=== PATIENT | female | born 1965 | race Hispanic/Latino ===

== ENCOUNTER 2019-08-28 10:42 | Emergency (ER) | payer BC, OTHER ==
[2019-08-28] MEDS ORDERED: DEXAMETHASONE SOD PHOSPHATE 10MG/ML 1ML VIAL ONE (10:53)
[2019-08-28] MEDS ORDERED: DiphenhydrAMINE HCL 50 MG/ML VIAL ONE (10:54)
== END 2019-08-28 11:56 | disposition home or self-care (01) ==
LOC: EDH 10:42
DX: T78.40XA Allergy, unspecified, initial encounter (principal); X58.XXXA Exposure to other specified factors, initial encounter
CPT/HCPCS: 96372 ×2; 99284; J1100; J1200

== ENCOUNTER 2024-08-23 09:31 | Day surgery (SDC) | payer BC ==
--- NOTE | 2024-08-22 13:01 | EKG ---
[facility] Test Date: 2024-08-22 Test Time: 12:49:24 Pat Name: AR SUMNER Department: [facility] Room: [facility] Gender: F Equity Analyst: [id number] : 1965 Requested By: WAQAS MCKINNEY Order Number: [id number] Reading MD: Yessenia Raymundo Measurements Intervals [place] Rate: 63 P: 39 [place]: 150 QRS: 62 QRSD: 82 T: 64 QT: 379 QTc: 387 Interpretive Statements Sinus rhythm No previous ECG available for comparison Electronically Signed On 08-24-2024 14:37:07 CDT by Yessenia Raymundo Please click the below link to view image of tracing.
[2024-08-22 13:14] VITALS: BP 138/61; PULSE 69; RESP 18; TEMP 97.3
[2024-08-22 13:17] LABS: BASOPHILS # (AUTO) 0.05 K/uL (0.00-0.20); BASOPHILS % (AUTO) 0.7 % (0.0-5.0); EOSINOPHILS # (AUTO) 0.16 K/uL (0.00-0.70); EOSINOPHILS % (AUTO) 2.4 % (0.0-8.0); HEMATOCRIT 41.4 % (36-48); IMMATURE GRANULOCYTE ABSOLUTE 0.01 K/uL (0-1); LYMPHOCYTES # (AUTO) 1.9 K/uL (1.0-4.8); LYMPHOCYTES % (AUTO) 28.1 % (21.0-51.0); MEAN CORPUSCULAR HEMOGLOBIN 29.2 pg (27.0-33.0); MEAN CORPUSCULAR HGB CONC 33.3 g/dL (32.0-36.0); MEAN CORPUSCULAR VOLUME 87.5 fL (79-99); MONOCYTES # (AUTO) 0.5 K/uL (0.1-1.0); MONOCYTES % (AUTO) 6.7 % (3.0-13.0); NEUTROPHILS # (AUTO) 4.1 K/uL (1.8-7.7); PLATELET COUNT (AUTO) 301 K/uL (130-400); RED BLOOD CELL COUNT(AUTO) 4.73 MIL/uL (4.00-5.50); RED CELL DISTRIBUTION WIDTH 12.5 % (11.0-15.5); WHITE BLOOD COUNT (AUTO) 6.7 K/uL (4.8-10.8)
[2024-08-22 13:24] LABS: CREATININE 0.7 mg/dL (0.5-1.0); POTASSIUM 3.9 mmol/L (3.5-5.1)
[2024-08-22 13:29] LABS: INR <= 0.93 (0.85-1.15); PROTHROMBIN TIME 9.9 SEC (9.6-11.6)
[2024-08-22 13:30] LABS: PARTIAL THROMBOPLASTIN TIME 27.5 SEC (26.3-35.5)
[~2024-08-23] VITALS: Ht 149.9 cm; Wt 61.1 kg
[2024-08-23] VITALS (15 sets, daily range): BP systolic 121–143; BP diastolic 57–81; PULSE 60–81; RESP 13–18; TEMP 97–97.9
[2024-08-23] MEDS: BUPIvacaine/PF 0.25% 30ML VIAL IJ ONE
[~2024-08-23 09:31] MED LIST: OMEP40CA21 PO; SUCR1TAB2 PO
[2024-08-23] MEDS: ceFAZolin SODIUM 2 GM VIAL ONE (10:22)
[2024-08-23] MEDS: LACTATED RINGERS 1000ML 1,000 ML IV ONE (10:22)
[2024-08-23] MEDS ORDERED: acetaMINOPHEN 100 ML ONE (10:32)
[2024-08-23] MEDS ORDERED: FAMOTIDINE 20MG VIAL IV ONE (10:32)
[2024-08-23] MEDS ORDERED: LIDOCAINE PF 100MG/5ML (2%) SYRINGE 5ML ONE ×2 (10:44→12:13)
[2024-08-23] MEDS ORDERED: dexaMETHasone SOD PHOSPHATE 10MG/ML 1ML VIAL ONE (12:13)
[2024-08-23] MEDS ORDERED: SUCCINYLCHOLINE CHLORIDE 20 MG/ML 10 ML VIAL ONE (12:13)
[2024-08-23] MEDS ORDERED: rocuRONium bROMide 10MG/1ML 5ML VL ONE (12:13)
[2024-08-23] MEDS ORDERED: ondanSETRON 4MG INJ ONE (12:13)
[2024-08-23] MEDS ORDERED: NEOSTIGMINE METHYLSULFATE 1MG/ML IV ONE (12:13)
[2024-08-23] MEDS ORDERED: proPOFol 10 MG/ML 20ML VIAL IV ONE (12:13)
[2024-08-23] MEDS ORDERED: GLYCOPYRROLATE 0.2 MG/ML 5 ML VIAL ONE (12:13)
[2024-08-23] MEDS ORDERED: MIDAZOLAM HCL 1 MG/ML 2ML VIAL ONE (12:14)
[2024-08-23] MEDS ORDERED: FENTanyl CITRate PF 50 MCG/1 ML 2ML VIAL ONE ×2 (12:14→12:55)
[2024-08-23] MEDS ORDERED: phenylEPHRINE HCL 10 MG/ML 1ML VIAL IV ONE (13:01)
--- NOTE | 2024-08-23 13:51 | PN ---
GENERAL SURGERY PROGRESS NOTE Date/Time Patient Seen: [ 08/23/2024 at 1300] Problem List: [ ] Interval History: [Postop day 0. Pain tolerable with p.r.n. medication. ] Physical Examination: ABD: [Incisions clean, dry and intact, Dermabond in place Vital Signs (last 8hr) Date Time Temp Pulse Resp B/P (MAP) Pulse Ox O2 Delivery O2 Flow Rate FiO2 08/23/24 09:50 97.0 70 16 143/81 98 Room Air Laboratory: [ ] Hematology Labs: Test 08/22/24 12:35 Range/Units White Blood Count 6.7 4.8-10.8 K/uL Red Blood Count 4.73 4.00-5.50 MIL/uL Hemoglobin 13.8 12.0-16.0 g/dL Hematocrit 41.4 36-48 % Mean Corpuscular Volume 87.5 79-99 fL Mean Corpuscular Hemoglobin 29.2 27.0-33.0 pg Mean Corpuscular Hemoglobin Concent 33.3 32.0-36.0 g/dL Red Cell Distribution Width 12.5 11.0-15.5 % Platelet Count 301 130-400 K/uL Mean Platelet Volume 10.6 H 7.5-10.5 fL Immature Granulocyte % (Auto) 0.1 0-1 % Neutrophils (%) (Auto) 62.0 40.0-77.0 % Lymphocytes (%) (Auto) 28.1 21.0-51.0 % Monocytes (%) (Auto) 6.7 3.0-13.0 % Eosinophils (%) (Auto) 2.4 0.0-8.0 % Basophils (%) (Auto) 0.7 0.0-5.0 % Neutrophils # (Auto) 4.1 1.8-7.7 K/uL Lymphocytes # (Auto) 1.9 1.0-4.8 K/uL Monocytes # (Auto) 0.5 0.1-1.0 K/uL Eosinophils # (Auto) 0.16 0.00-0.70 K/uL Basophils # (Auto) 0.05 0.00-0.20 K/uL Absolute Immature Granulocyte (auto 0.01 0-1 K/uL Nucleated Red Blood Cells 0.0 0.0-0.19 % Chemistry Labs: Test 08/22/24 12:35 Range/Units Sodium Level 142 136-145 mmol/L Potassium Level 3.9 3.5-5.1 mmol/L Chloride Level 104 101-111 mmol/L Carbon Dioxide Level 34 H 21-32 mmol/L Blood Urea Nitrogen 16 7-18 mg/dL Creatinine 0.7 0.5-1.0 mg/dL Glomerular Filtration Rate Calc 99 >90 mL/min Random Glucose 91 70-105 mg/dL Total Calcium 9.3 8.5-10.1 mg/dL Coagulation Labs: Test 08/22/24 12:35 Range/Units Prothrombin Time 9.9 9.6-11.6 SEC Prothromb Time International Ratio <= 0.93 0.85-1.15 Activated Partial Thromboplast Time 27.5 26.3-35.5 SEC Diagnostics / Radiology: [Copy/Paste Echos/Imaging Report here] Impression and Plan: [Plan is for discharge home in the next day or two as long as patient tolerating p.o., ambulatory and pain under control. Discussed with patient and family. They understand and agree. ] MYRA MCKINNEY Aug 23, 2024 13:51
[2024-08-23] MEDS: hydroMORPHone 1 MG INJ ONE (14:08)
--- NOTE | 2024-08-23 14:11 | OP ---
Operative Note: DATE OF PROCEDURE: 08/23/24 SURGEON: WAQAS MCKINNEY MD V BELT FINISHER: Amos Mckinney MD PA-C ANESTHESIA: General and Local ANESTHESIOLOGIST/SERVICER TRAVEL TRAILERS: [facility] anesthesia team PREOPERATIVE DIAGNOSIS: Symptomatic cholelithiasis POSTOPERATIVE DIAGNOSIS: As above SYNOPSIS: cholecystectomy with IC-Green IOC performed PROCEDURE: Robotic assisted cholecystectomy with IC green intraoperative cholangiogram ESTIMATED BLOOD LOSS: Minimal, less than 20 cc INDICATIONS: As above DESCRIPTION OF PROCEDURE: After standard precautions and preparations were undertaken a Veress and optical trocar were used to enter the abdominal cavity. All other instruments were placed under direct vision. The robotic system was docked in the standard fashion. We retracted the fundus of the gallbladder cephalad and began dissecting around the infundibulum until two gonzalez structures were identified a single cystic artery and a single cystic duct. We utilized IC green and firefly technology to visualize the ductal system. This confirmed the presence of the cystic duct which we could see to its junction with the common hepatic and common bile duct. There was no sign of any ductal obstruction or filling defects. With the critical view of safety achieved both structures were clipped and divided. Monopolar cautery was used to separate the attachments between the gallbladder and gallbladder fossa. The specimen was placed in an Endo-Catch bag and removed from the abdominal cavity. Prior to ending the case all instrument counts were verified as correct including needles and sponges. The patient tolerated the procedure well. The clips were verified in place and the patient was hemostatic with no signs of bile leakage during our last view within the abdomen. WAQAS MCKINNEY MD Aug 23, 2024 14:11
[2024-08-23] MEDS: ondanSETRON 4MG INJ IVP ONE (15:11)
[2024-08-23] MEDS: metoCLOPRAmide 10 MG/2 ML VIAL IVP ONE (15:11)
== END 2024-08-23 16:12 | disposition home or self-care (01) ==
LOC: DAH 09:31
PROVIDERS: ATTEND Surgery
DX: K80.10 Calculus of gallbladder with chronic cholecystitis without obstruction (principal); K21.9 Gastro-esophageal reflux disease without esophagitis; E03.9 Hypothyroidism, unspecified; K85.80 Other acute pancreatitis without necrosis or infection; R14.0 Abdominal distension (gaseous); Z79.899 Other long term (current) drug therapy
CPT/HCPCS: 47563; S2900; 36415; 80048; 85025; 85610; 85730; 86850; 86900; 86901; 88304; 93005; J0330; J1100; J1171; J2003; J2250; J2371; J2405; J2704; J2710; J2765; J3010; J3490; J7030; J7120; A4215; A4221; A4222; A4223; A4600; A4663; A6260; J0665; J0690

== ENCOUNTER 2024-08-23 21:16 | Emergency (ER) | payer BC ==
[~2024-08-23] VITALS: Ht 149.9 cm; Wt 56.2 kg
[2024-08-23 21:19] VITALS: BP 114/69; PULSE 77; RESP 22; TEMP 98.9
--- NOTE | 2024-08-23 21:50 | NUR ---
ATTEMPTED TO CALL PATIENT FOR CARE AT THIS TIME, NO ANSWER WHEN CALLED FROM [facility], CHECKED BATHROOM AND NO ANSWER EITHER./[place]
--- NOTE | 2024-08-23 22:09 | NUR ---
ATTEMPTED TO CALL PATIENT FROM [facility] ONCE MORE, NO ANSWER. CALLED PATIENT ON PHONE NUMBER LISTED NO ANSWER, UNABLE TO LEAVE VOICEMAIL AT THIS TIME DUE TO MAILBOX BEING FULL. ED METAL TREATER AWARE./[place]
--- NOTE | 2024-08-23 22:18 | NUR ---
ATTEMPTED TO CALL PATIENT FROM [facility] FOR CARE AT THIS TIME ONCE MORE NO ANSWER, CALLED PHONE NUMBER LISTED AND NO ANSWER, UNABLE TO LEAVE VOICEMAIL DUE TO MAILBOX BEING FULL. ED PA AWARE AT THIS TIME OF PATIENT ELOPEMENT./[place]
== END 2024-08-23 22:23 | disposition left against medical advice (07) ==
LOC: EDH 21:16
DX: R10.84 Generalized abdominal pain (principal); Z53.21 Procedure and treatment not carried out due to patient leaving prior to being seen by health care provider